=== PATIENT | female | born 2000 | race Caucasian/White ===

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

== ENCOUNTER 2020-01-16 09:05 | Emergency (ER) | payer MEDICAID ==
[~2020-01-16] VITALS: Ht 132.1 cm; Wt 50.5 kg
[~2020-01-16 09:05] MED LIST: IBUP-1222 PO; OXYC-302 PO; PREN-3 PO
[2020-01-16 09:26] VITALS: BP 128/82
--- NOTE | 2020-01-16 09:32 | NUR ---
PCN ALLERGY REMOVED-REPORTED ALLERGY CHILD. PATIENT AGREEABLE
[2020-01-16] MEDS ORDERED: CARBAMIDE PEROXIDE EAR DROPS 6.5%, 15ML LEFT EAR ONE (10:00)
[2020-01-16] MEDS ORDERED: CARBAMIDE PEROXIDE EAR DROPS 6.5%, 15ML ONE (10:03)
--- NOTE | 2020-01-16 11:10 | NUR ---
TASK RN: Patient/Caregiver given discharge instructions and they have confirmed that they understand the instructions. Patient ambulatory with steady gait.
== END 2020-01-16 11:33 | disposition home or self-care (01) ==
LOC: ED 11:16
DX: K08.89 Other specified disorders of teeth and supporting structures (principal); H61.22 Impacted cerumen, left ear; H60.502 Unspecified acute noninfective otitis externa, left ear
CPT/HCPCS: 69209; 99283

== ENCOUNTER 2021-04-16 15:37 | Outpatient (CLI) | payer MEDICAID ==
[~2021-04-16] VITALS: Ht 132.1 cm; Wt 62.7 kg
[~2021-04-16 15:37] MED LIST changes: -OXYC-302 PO; +OXYC1TAB14 PO
[2021-04-16 16:07] LABS: MEAN CORPUSCULAR HEMOGLOBIN 30.2 pg (27.0-34.8); MEAN CORPUSCULAR HGB CONC 34.3 g/dL (32.4-35.8); MEAN PLATELET VOLUME 9.2 fL (7.4-10.4); PLATELET COUNT 194 x10^3/uL (130-400); RED BLOOD COUNT 4.53 x10^6/uL (3.82-5.3)
[2021-04-16 16:53] LABS: BAND#(MANUAL) 1.07 x10^3/uL; BANDS%(MANUAL) 7 % (0-7); EOS#(MANUAL) 0.46 x10^3/uL (0.0-0.4); EOS% (MANUAL) 3 % (1-7); LYMPH#(MANUAL) 1.38 x10^3/uL (1-3.4); LYMPHS% (MANUAL) 9 % (22-44); MONOS#(MANUAL) 0.61 x10^3/uL (0.3-2.7); MONOS% (MANUAL) 4 % (2-9); MYELOCYTES# (MANUAL) 0.15 x10^3/uL (0-0); MYELOCYTES% (MANUAL) 1 % (0-0); SEG#(MANUAL) 11.63 x10^3/uL (1.8-6.8); SEGS% (MANUAL) 76 % (42-75)
[2021-04-16 16:55] LABS: <PLATELET ESTIMATE> ADEQUATE; <PLT MORPHOLOGY> NORMAL PLT MORPH; ANISOCYTOSIS 1+
[2021-04-16 18:14] LABS: MICROSCOPIC NOT IND
== END 2021-04-16 19:47 | disposition home or self-care (01) ==
LOC: LDOP 15:37
PROVIDERS: ATTEND Obstetrics & Gynecology
DX: Z34.92 Encounter for supervision of normal pregnancy, unspecified, second trimester (principal); Z3A.24 24 weeks gestation of pregnancy
CPT/HCPCS: 36415; 59025; 76815; 81003; 85025; 85384; 85460; 87086